=== PATIENT | male | born 1970 | race Caucasian/White ===

== ENCOUNTER 2019-12-02 12:46 | Inpatient (IN) ==
[2019-12-02] MEDS ORDERED: Naloxone 0.4 MG/ML INJ IVP PRN (16:21)
[2019-12-02] MEDS ORDERED: *HR* HYDROcodone/Acet 5/325 mg TABLET PO PRN (16:21)
[2019-12-02] MEDS ORDERED: Ondansetron 4 MG/2 ML VIAL IVP PRN (16:21)
[2019-12-02] MEDS ORDERED: *HR* Dextrose 50 % in Water (Vial) 50 ML VIAL IVP PRN (16:24)
[2019-12-02] MEDS ORDERED: D5% in Water 1,000 ML IVC PRN (16:24)
[2019-12-02] MEDS ORDERED: Dextrose Gel 15 GM/37.5 ML TUBE PO PRN ×2 (16:24)
[2019-12-02] MEDS: Insulin LISPRO 300 UNITS/3 ML VIAL SQ SCH (16:45)
[2019-12-02] MEDS: *HR* Heparin 5,000 UNIT/ML VIAL SQ SCH (16:46)
[2019-12-02] MEDS ORDERED: clonazePAM 1 MG TABLET PO PRN (16:58)
[2019-12-02] MEDS ORDERED: Vancomycin 1,750 MG/517.5 ML IV.SOLN IVPB ONE (16:59)
[2019-12-02] MEDS ORDERED: Vancomycin 1,500 MG/265 ML IV.SOLN IVPB SCH (17:00)
[2019-12-02] MEDS: Acetaminophen 325 MG TABLET PO PRN (19:40)
[2019-12-02] MEDS ORDERED: Insulin DETEMIR 100 UNIT/ML X5UNITS SQ SCH (21:00)
[2019-12-02] MEDS: MetroNIDAZOLE 500 MG/100 ML 500 MG/100 ML BAG IVPB SCH (23:28)
[2019-12-03] MEDS ORDERED: Vancomycin 1,250 MG/262.5 ML IV.SOLN IVPB SCH (05:00)
[2019-12-03 05:09] LABS: INR 1.1; Prothrombin Time 12.8 Seconds (9.4-12.1)
[2019-12-03 05:11] LABS: Basophils # 0.1 K/mcL (0.0-0.2); Basophils % 0.8 %; Eosinophils # 0.2 K/mcL (0.0-0.6); Eosinophils % 2.2 %; Hematocrit 39.3 % (37.5-50.1); Immature Granulocytes % 0.5 % (0-4); Lymphocytes # 1.7 K/mcL (0.6-4.6); Lymphocytes % 17.4 %; Mean Corpuscular HGB Conc 33.1 g/dL (31.6-35.5); Mean Corpuscular Hemoglobin 28.4 pg (28.0-33.3); Mean Corpuscular Volume 85.8 fL (83.0-100.0); Mean Platelet Volume 10.9 fL (9.4-12.4); Monocytes % 9.9 %; Neutrophils # 6.7 K/mcL (1.6-8.9); Platelet Count 152 K/mcL (140-400); Red Blood Count 4.58 M/mcL (4.19-5.50); Red Cell Distribution Width 12.9 % (11.5-14.5); Segmented Neutrophils % 69.2 %; White Blood Count 9.8 K/mcL (4.3-11.1)
[2019-12-03 05:12] LABS: Activated Partial Thrombo Time 30.5 Seconds (26.0-36.0)
[2019-12-03 05:24] LABS: BUN/Creatinine Ratio 11 (6-26); Blood Urea Nitrogen 8 mg/dL (6-20); Calcium 8.9 mg/dL (8.6-10.3); Carbon Dioxide 24 mEq/L (23-29); Chloride 101 mEq/L (98-107); Glucose 187 mg/dL (70-105); Osmolality,Calculated 277 (280-300); Potassium 3.7 mEq/L (3.5-5.1); Sodium 132 mEq/L (136-145); eGFR For African Americans > 60 (> 60); eGFR For Non-African Americans > 60 (> 60)
[2019-12-03] MEDS: *HR* Heparin 5,000 UNIT/ML VIAL SQ SCH ×2 (05:30→17:28)
[2019-12-03] MEDS: Acetaminophen 325 MG TABLET PO PRN (07:22)
[2019-12-03] MEDS: Insulin LISPRO 300 UNITS/3 ML VIAL SQ SCH ×2 (07:28→16:46)
[2019-12-03] MEDS: MetroNIDAZOLE 500 MG/100 ML 500 MG/100 ML BAG IVPB SCH ×3 (08:32→23:51)
[2019-12-03] MEDS ORDERED: Insulin LISPRO 300 UNITS/3 ML VIAL SQ SCH ×3 (09:20→21:00)
[2019-12-03] MEDS ORDERED: *HR* HYDROmorphone PF 0.5 MG/0.5 ML SYRINGE IVP PRN (13:59)
[2019-12-03] MEDS ORDERED: *HR* OxyCODONE Immed Rel 5 MG TABLET PO PRN (13:59)
[2019-12-03] MEDS ORDERED: Ondansetron 4 MG/2 ML VIAL IVP PRN ×2 (13:59→15:57)
[2019-12-03] MEDS ORDERED: *HR* Promethazine 25 MG/ML VIAL IVP PRN (13:59)
[2019-12-03] MEDS ORDERED: *HR* Rocuronium Bromide 50 MG/5 ML VIAL ONE (14:29)
[2019-12-03] MEDS ORDERED: *HR* Midazolam HCl 2 MG/2 ML VIAL ONE (14:29)
[2019-12-03] MEDS ORDERED: Lidocaine -MPF 2% 2 ML VIAL ONE ×2 (14:29)
[2019-12-03] MEDS ORDERED: *HR* Propofol 200 MG/20 ML VIAL IVP ONE (14:29)
[2019-12-03] MEDS ORDERED: *HR* Succinylcholine 200 MG/10 ML VIAL IVP ONE (14:29)
[2019-12-03] MEDS ORDERED: *HR* HYDROMORPHONE 2 MG/ML VIAL ONE (14:31)
[2019-12-03] MEDS ORDERED: *HR* FentaNYL (PF) 100 MCG/2 ML VIAL ONE (14:31)
[2019-12-03] MEDS ORDERED: Ketorolac 30 MG/ML VIAL ONE (14:46)
[2019-12-03] MEDS ORDERED: Dextrose Gel 15 GM/37.5 ML TUBE PO PRN ×2 (15:57)
[2019-12-03] MEDS ORDERED: Naloxone 0.4 MG/ML INJ IVP PRN (15:57)
[2019-12-03] MEDS ORDERED: *HR* Dextrose 50 % in Water (Vial) 50 ML VIAL IVP PRN (15:57)
[2019-12-03] MEDS ORDERED: *HR* OxyCODONE/APAP 10/325 TABLET PO PRN (15:57)
[2019-12-03] MEDS: Ketorolac 15 MG/ML VIAL IVP SCH ×2 (17:28→23:50)
[2019-12-03] MEDS: Insulin DETEMIR 100 UNIT/ML X5UNITS SQ SCH (20:48)
[2019-12-03] MEDS ORDERED: Insulin DETEMIR 100 UNIT/ML X5UNITS SQ SCH (21:00)
[2019-12-03] MEDS: clonazePAM 1 MG TABLET PO PRN (21:03)
[2019-12-04 03:32] LABS: BUN/Creatinine Ratio 16 (6-26); Blood Urea Nitrogen 13 mg/dL (6-20); Calcium 9.2 mg/dL (8.6-10.3); Carbon Dioxide 24 mEq/L (23-29); Chloride 101 mEq/L (98-107); Glucose 338 mg/dL (70-105); Magnesium 1.9 mg/dL (1.6-2.6); Osmolality,Calculated 287 (280-300); Potassium 4.4 mEq/L (3.5-5.1); Sodium 132 mEq/L (136-145); eGFR For African Americans > 60 (> 60); eGFR For Non-African Americans > 60 (> 60)
[2019-12-04] MEDS: *HR* Heparin 5,000 UNIT/ML VIAL SQ SCH ×2 (06:22→18:04)
[2019-12-04] MEDS: Ketorolac 15 MG/ML VIAL IVP SCH ×4 (06:22→23:35)
[2019-12-04] MEDS: Insulin LISPRO 300 UNITS/3 ML VIAL SQ SCH ×5 (08:36→16:44)
[2019-12-04] MEDS: MetroNIDAZOLE 500 MG/100 ML 500 MG/100 ML BAG IVPB SCH ×3 (08:36→23:36)
[2019-12-04] MEDS ORDERED: Insulin DETEMIR 100 UNIT/ML X5UNITS SQ SCH (09:15)
[2019-12-04] MEDS ORDERED: Insulin LISPRO 300 UNITS/3 ML VIAL SQ SCH (13:11)
[2019-12-04] MEDS: Insulin DETEMIR 100 UNIT/ML X5UNITS SQ SCH (21:19)
[2019-12-04] MEDS: clonazePAM 1 MG TABLET PO PRN (21:25)
[2019-12-04] MEDS ORDERED: Acetaminophen 325 MG TABLET PO ONE (23:54)
[2019-12-05 05:16] LABS: BUN/Creatinine Ratio 16 (6-26); Blood Urea Nitrogen 11 mg/dL (6-20); Carbon Dioxide 24 mEq/L (23-29); Chloride 101 mEq/L (98-107); Glucose 261 mg/dL (70-105); Magnesium 1.7 mg/dL (1.6-2.6); Osmolality,Calculated 284 (280-300); Phosphorous 3.3 mg/dL (2.7-4.5); Potassium 3.6 mEq/L (3.5-5.1); Sodium 133 mEq/L (136-145); eGFR For African Americans > 60 (> 60); eGFR For Non-African Americans > 60 (> 60)
[2019-12-05] MEDS: *HR* Heparin 5,000 UNIT/ML VIAL SQ SCH (06:19)
[2019-12-05] MEDS: Ketorolac 15 MG/ML VIAL IVP SCH (06:19)
[2019-12-05] MEDS: Insulin LISPRO 300 UNITS/3 ML VIAL SQ SCH (07:19)
[2019-12-05 07:49] VITALS: BP 136/81
[2019-12-05] MEDS ORDERED: Insulin DETEMIR 100 UNIT/ML X5UNITS SQ SCH ×2 (09:15→21:00)
[2019-12-05 09:31] LABS: Hematocrit 38.1 % (37.5-50.1); Hemoglobin 12.4 g/dL (12.9-16.9); Mean Corpuscular HGB Conc 32.5 g/dL (31.6-35.5); Mean Corpuscular Hemoglobin 28.5 pg (28.0-33.3); Mean Corpuscular Volume 87.6 fL (83.0-100.0); Mean Platelet Volume 12.2 fL (9.4-12.4); Platelet Count 177 K/mcL (140-400); Red Blood Count 4.35 M/mcL (4.19-5.50); Red Cell Distribution Width 13.1 % (11.5-14.5); White Blood Count 5.4 K/mcL (4.3-11.1)
[2019-12-05 10:00] LABS: Basophils # 0.2 K/mcL (0.0-0.2); Eosinophils # 0.1 K/mcL (0.0-0.6); Lymphocytes # 2.2 K/mcL (0.6-4.6); Monocytes # 0.7 K/mcL (0.0-1.3); Neutrophils # 2.3 K/mcL (1.6-8.9)
[2019-12-05 10:02] LABS: Reactive Lymphocytes Present (Not Present)
[2019-12-05 10:03] LABS: Platelet Estimate Normal (Normal)
== END 2019-12-05 11:08 | disposition home or self-care (01) | DRG 854 ==
LOC: 3BNU → SUATTDRO 16:21
PROVIDERS: ADMIT Internal Medicine; ATTEND Internal Medicine